=== PATIENT | male | born 1975 | race Caucasian/White ===

== ENCOUNTER 2019-01-01 16:46 | Emergency (ER) | payer MEDICARE, MEDICAID ==
[~2019-01-01 16:46] MED LIST: ADV50250 IH; ALBU18HF2 INH; CALC500T PO; CLIN-96 PO; DEXT30SU5 PO; DIPH1TAB PO; DIVA125T31 PO; IBUP-1984 PO; IBUP-1986 PO; LORA-512 PO; LORA0.5T PO; METF500T PO; ONDA4TAB59 PO; ONDA8TAB9 PO; PRED1TAB PO; PSEU120T84 PO; ZOC40T PO; ZOF4T PO
--- NOTE | 2019-01-01 16:55 | NUR ---
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 PT WAITED SEVERAL MINUTES, THEN GOT ON FLOOR AT REGISTRATION DESK, LEG TWITCHING PER SLUDGE CONTROL ATTENDANT. PT AWOKE AND VERBALIZED WITH STERNAL RUB, STATED HE JUST ISN'T FEELING WELL. PT SMELLED OF ETOH, DENIED DRINKING ETOH. REASSURED PT THAT HE WAS NEXT FOR TRIAGE, TRIAGE NURSE HAD A PATIENT IN THE ROOM ALREADY
== END 2019-01-01 17:59 | disposition left against medical advice (07) ==
LOC: ER 16:46
DX: R25.3 Fasciculation (principal); Z53.21 Procedure and treatment not carried out due to patient leaving prior to being seen by health care provider

== ENCOUNTER 2019-10-22 18:33 | Emergency (ER) | payer MEDICARE, MEDICAID ==
[~2019-10-22] VITALS: Ht 172.7 cm; Wt 90.4 kg
[~2019-10-22 18:33] MED LIST changes: -CLIN-96 PO; +CLIN-97 PO
[2019-10-22] MEDS ORDERED: aspirin 81mg tab.chew PO ONE (19:00)
--- NOTE | 2019-10-22 19:20 | NUR ---
pt decline iv start dr [place] notified and aware
[2019-10-22 19:34] LABS: BASOPHILS % (AUTO) 0.2 % (0-1); EOSINOPHILS # (AUTO) 0.2 X10'3 (0-0.9); EOSINOPHILS % (AUTO) 2.6 % (0-6); HEMATOCRIT 42.2 % (42.0-52.0); HEMOGLOBIN 13.9 g/dl (14.0-17.9); LYMPHOCYTES # (AUTO) 1.7 X10'3 (1.1-4.8); LYMPHOCYTES % (AUTO) 27.8 % (21-51); MEAN CORPUSCULAR VOLUME 97.1 FL (78-98); MEAN PLATELET VOLUME 9.5 FL (7.4-10.4); MONOCYTES # (AUTO) 0.5 X10'3 (0-0.9); MONOCYTES % (AUTO) 7.6 % (2-12); NEUTROPHILS # (AUTO) 3.8 X10'3 (1.8-7.7); NEUTROPHILS % (AUTO) 61.8 % (42-75); PLATELET COUNT 188 X10'3 (140-440); RED BLOOD COUNT 4.35 X10'6 (4.70-6.10); RED CELL DISTRIBUTION WIDTH 13.7 % (11.5-14.5); WHITE BLOOD COUNT 6.2 X10'3 (4.5-11.0)
[2019-10-22 19:44] LABS: PARTIAL THROMBOPLASTIN TIME 24 SECONDS (22-32)
[2019-10-22 19:46] LABS: D-DIMER < 0.19 MG/L FEU (0-0.50)
[2019-10-22 19:53] LABS: ALANINE AMINOTRANSFERASE 38 U/L (12-78); ALBUMIN/GLOBULIN RATIO 1.3 (1.1-1.5); ALKALINE PHOSPHATASE 59 IU/L (46-116); ANION GAP 9 (8-16); ASPARTATE AMINO TRANSFERASE 26 U/L (10-37); BILIRUBIN,TOTAL 0.3 MG/DL (0.1-1.0); BLOOD UREA NITROGEN 18 MG/DL (7-18); CALCIUM 8.6 MG/DL (8.5-10.1); CHLORIDE 107 MMOL/L (99-107); GLUCOSE 125 MG/DL (70-104); MAGNESIUM 2.2 MG/DL (1.5-2.4); POTASSIUM 3.9 MMOL/L (3.5-5.1); SODIUM 141 MMOL/L (135-145); TOTAL CARBON DIOXIDE 25.3 MMOL/L (24-32); TOTAL PROTEIN 7.1 G/DL (6.4-8.2); eGFR 66 ML/MIN
[2019-10-22 20:51] VITALS: BP 140/82
[2019-10-23] MEDS ORDERED: PERM60CR19 TOP (21:49)
== END 2019-10-22 20:54 | disposition left against medical advice (07) ==
LOC: ER 18:34
DX: I20.0 Unstable angina (principal); E78.00 Pure hypercholesterolemia, unspecified; J45.909 Unspecified asthma, uncomplicated; K21.9 Gastro-esophageal reflux disease without esophagitis; E11.9 Type 2 diabetes mellitus without complications; G89.29 Other chronic pain; F41.9 Anxiety disorder, unspecified; Z98.890 Other specified postprocedural states; Z86.69 Personal history of other diseases of the nervous system and sense organs; Z88.0 Allergy status to penicillin; Z88.8 Allergy status to other drugs, medicaments and biological substances; Z79.899 Other long term (current) drug therapy; Z79.84 Long term (current) use of oral hypoglycemic drugs
CPT/HCPCS: 36415; 71045; 80053; 83735; 84484; 85025; 85379; 85610; 85730; 93005; 99285

== ENCOUNTER 2019-10-23 20:43 | Emergency (ER) | payer MEDICARE, MEDICAID ==
[~2019-10-23] VITALS: Ht 177.8 cm; Wt 75.0 kg
[2019-10-23 21:39] VITALS: BP 115/72
[2019-10-23] MEDS ORDERED: diphenhydrAMINE 2%/zinc acetate cream TP STA (21:41)
[2019-10-23] MEDS ORDERED: PERM60CR19 TOP (21:49)
== END 2019-10-23 22:10 | disposition home or self-care (01) ==
LOC: ER 20:44
DX: R21 Rash and other nonspecific skin eruption (principal); E78.00 Pure hypercholesterolemia, unspecified; J45.909 Unspecified asthma, uncomplicated; K21.9 Gastro-esophageal reflux disease without esophagitis; E11.9 Type 2 diabetes mellitus without complications; G89.29 Other chronic pain; F41.9 Anxiety disorder, unspecified; Z98.890 Other specified postprocedural states; Z88.0 Allergy status to penicillin; Z88.8 Allergy status to other drugs, medicaments and biological substances; Z79.899 Other long term (current) drug therapy
CPT/HCPCS: 99282

== ENCOUNTER 2019-11-14 20:08 | Emergency (ER) | payer MEDICARE, MEDICAID ==
[~2019-11-14] VITALS: Ht 177.8 cm; Wt 90.4 kg
[~2019-11-14 20:08] MED LIST changes: +PERM60CR19 TOP
[2019-11-14 20:38] LABS: BASOPHILS % (AUTO) 0.5 % (0-1); EOSINOPHILS % (AUTO) 0.6 % (0-6); HEMATOCRIT 44.8 % (42.0-52.0); HEMOGLOBIN 14.8 g/dl (14.0-17.9); LYMPHOCYTES # (AUTO) 1.8 X10'3 (1.1-4.8); LYMPHOCYTES % (AUTO) 27.6 % (21-51); MEAN CORPUSCULAR HEMOGLOBIN 31.6 PG (27.0-31.0); MEAN CORPUSCULAR VOLUME 95.8 FL (78-98); MEAN PLATELET VOLUME 9.2 FL (7.4-10.4); MONOCYTES # (AUTO) 0.4 X10'3 (0-0.9); MONOCYTES % (AUTO) 5.5 % (2-12); NEUTROPHILS # (AUTO) 4.2 X10'3 (1.8-7.7); NEUTROPHILS % (AUTO) 65.8 % (42-75); PLATELET COUNT 228 X10'3 (140-440); RED BLOOD COUNT 4.68 X10'6 (4.70-6.10); RED CELL DISTRIBUTION WIDTH 13.8 % (11.5-14.5); WHITE BLOOD COUNT 6.5 X10'3 (4.5-11.0)
[2019-11-14 20:50] LABS: ALANINE AMINOTRANSFERASE 42 U/L (12-78); ALBUMIN 4.4 G/DL (3.4-5.0); ALBUMIN/GLOBULIN RATIO 1.2 (1.1-1.5); ALKALINE PHOSPHATASE 113 IU/L (46-116); ANION GAP 8 (8-16); ASPARTATE AMINO TRANSFERASE 24 U/L (10-37); BILIRUBIN,TOTAL 0.4 MG/DL (0.1-1.0); BLOOD UREA NITROGEN 20 MG/DL (7-18); BUN/CREATININE RATIO 16.5 (5.4-32.0); CALCIUM 8.8 MG/DL (8.5-10.1); CHLORIDE 108 MMOL/L (99-107); CREATININE 1.21 MG/DL (0.60-1.10); GLUCOSE 125 MG/DL (70-104); LIPASE 257 U/L (73-393); POTASSIUM 4.2 MMOL/L (3.5-5.1); SODIUM 143 MMOL/L (135-145); TOTAL CARBON DIOXIDE 26.7 MMOL/L (24-32); eGFR 65 ML/MIN
[2019-11-14 22:42] VITALS: BP 142/72
[2019-11-14 22:44] LABS: CLARITY,URINE CLEAR (Clear); COLOR,URINE YELLOW (Yellow); GLUCOSE, URINE NEGATIVE (Neg); KETONES,URINE NEGATIVE (Neg); LEUKOCYTE ESTERASE ,URINE NEGATIVE (Neg); NITRITES, URINE NEGATIVE (Neg); OCCULT BLOOD,URINE NEGATIVE (Neg); PH,URINE 6.5 (4.8-8.0); PROTEIN,URINE NEGATIVE (Neg)
[2019-11-14 22:48] LABS: UA COLLECTION TYPE CLN CATCH MIDSTREAM
== END 2019-11-14 22:43 | disposition home or self-care (01) ==
LOC: ER 20:09
DX: S30.1XXA Contusion of abdominal wall, initial encounter (principal); E78.00 Pure hypercholesterolemia, unspecified; J45.909 Unspecified asthma, uncomplicated; K21.9 Gastro-esophageal reflux disease without esophagitis; G89.29 Other chronic pain; F41.9 Anxiety disorder, unspecified; Z86.69 Personal history of other diseases of the nervous system and sense organs; Z98.890 Other specified postprocedural states; Z88.0 Allergy status to penicillin; Z88.8 Allergy status to other drugs, medicaments and biological substances; Z79.899 Other long term (current) drug therapy; Z79.2 Long term (current) use of antibiotics; V89.2XXA Person injured in unspecified motor-vehicle accident, traffic, initial encounter; Y93.89 Activity, other specified; Y92.89 Other specified places as the place of occurrence of the external cause; Y99.8 Other external cause status
CPT/HCPCS: 36415; 76700; 80053; 81003; 83690; 85025; 99284

== ENCOUNTER 2019-11-15 05:01 | Emergency (ER) | payer MEDICARE, MEDICAID ==
[~2019-11-15] VITALS: Ht 177.8 cm; Wt 90.9 kg
[2019-11-15 05:04] VITALS: BP 123/84
== END 2019-11-15 05:40 | disposition home or self-care (01) ==
LOC: ER 05:02
DX: Z76.5 Malingerer [conscious simulation] (principal); L29.9 Pruritus, unspecified; E78.00 Pure hypercholesterolemia, unspecified; J45.909 Unspecified asthma, uncomplicated; K21.9 Gastro-esophageal reflux disease without esophagitis; E11.9 Type 2 diabetes mellitus without complications; G89.29 Other chronic pain; F41.9 Anxiety disorder, unspecified; Z86.69 Personal history of other diseases of the nervous system and sense organs; Z98.890 Other specified postprocedural states; Z59.0 Homelessness; Z88.0 Allergy status to penicillin; Z88.8 Allergy status to other drugs, medicaments and biological substances; Z79.2 Long term (current) use of antibiotics; Z79.899 Other long term (current) drug therapy
CPT/HCPCS: 99281

== ENCOUNTER 2021-02-04 16:16 | Emergency (ER) | payer MEDICARE, MEDICAID ==
[~2021-02-04] VITALS: Ht 180.3 cm; Wt 106.2 kg
[~2021-02-04 16:16] MED LIST changes: -PERM60CR19 TOP
[2021-02-04 16:23] VITALS: BP 130/88
--- NOTE | 2021-02-04 17:42 | NUR ---
PT WOULD NOT HOLD STILL DURING COVID SWABBING
== END 2021-02-04 18:30 | disposition home or self-care (01) ==
LOC: ER 16:18
DX: U07.1 COVID-19 (principal); R06.02 Shortness of breath; J45.909 Unspecified asthma, uncomplicated; G40.909 Epilepsy, unspecified, not intractable, without status epilepticus; E78.00 Pure hypercholesterolemia, unspecified; K21.9 Gastro-esophageal reflux disease without esophagitis; E11.9 Type 2 diabetes mellitus without complications; G89.29 Other chronic pain; Z59.0 Homelessness; Z98.890 Other specified postprocedural states; Z88.0 Allergy status to penicillin; Z88.8 Allergy status to other drugs, medicaments and biological substances; Z79.899 Other long term (current) drug therapy
CPT/HCPCS: 36415; 71045; 99284; U0003; U0005

== ENCOUNTER 2024-09-22 08:22 | Emergency (ER) | payer MEDICARE, MEDICAID ==
[~2024-09-22] VITALS: Ht 180.3 cm; Wt 103.4 kg
[2024-09-22] MEDS ORDERED: SULF1TAB49 PO (09:14)
[2024-09-22] MEDS ORDERED: IBUP-1984 PO (09:14)
[2024-09-22] MEDS: sulfamethoxazole/trimethoprim DS (800/160mg) tablet PO ONE (09:42)
[2024-09-22 09:45] VITALS: BP 124/82; PULSE 94; RESP 16; TEMP 97; O2SAT 99
--- NOTE | 2024-09-22 09:46 | Physician Documentation ---
HPI ~ General Chief Complaint: Tooth Problem Stated Complaint: TOOTH PAIN Time Seen by MD: 08:35 OK to notify your PCP?: Yes Primary Medical Doctor: [facility] Mode of Arrival: POV History of Present Illness HPI Comment 49-year-old male patient came to the emergency room because of right-sided tooth pain. No other complaints. He stated that he is allergic to penicillin and cephalosporin but he does not know what kind of allergic reaction. No other complaints. Medication Reconciliation Allergies: Coded Allergies: Penicillins (Verified Allergy, Intermediate, 09/22/24) Carbapenems (Verified Allergy, Unknown, 11/15/19) Cephalosporins (Verified Allergy, Unknown, 11/15/19) aztreonam (Verified Allergy, Unknown, 11/15/19) penicillin G (Verified Allergy, Unknown, 11/15/19) Scheduled Albuterol Sulfate (Ventolin Hfa), 2 PUFFS INH Q4HPRN Calcium Gluconate (Calcium Gluconate), 1 TAB PO QID Clindamycin HCL* (Clindamycin HCL*), 1 CAP PO Q6H Dextromethorphan Polistirex (Delsym), 30 MG PO BID Divalproex Sodium DR* (Depakote DR*), 500 MG PO BID, (Reported) Fluticasone/Salmeterol* (Advair 250-50 Diskus*), 1 INH IH BID, (Reported) Ibuprofen (Ibuprofen), 1 TAB PO Q8H Loratadine* (Alavert*), 1 TAB PO DAILY, (Reported) Metformin Hcl* (Glucophage*), 1 TABLET PO BID, (Reported) Ondansetron Hcl (Ondansetron Hcl), 4 MG PO Q8H PRN N/V Ondansetron ODT* (Zofran ODT*), 4 MG PO Q6H Prednisone* (Prednisone*), 2 TAB PO DAILY Pseudoephedrine Hcl (Pseudoephedrine), 1 TABLET PO BID Simvastatin* (Zocor*), 1 TAB PO QPM, (Reported) Sulfamethoxazole/Trimethoprim (Bactrim Ds Tablet), 1 TAB PO Q12H Scheduled PRN Diphenoxylate HCl/Atropine (Lomotil 2.5-0.025 mg Tablet), 1 TAB PO Q6H PRN for diarrhea Ibuprofen* (Motrin*), 800 MG PO Q8H PRN for pain, (Reported) Ibuprofen* (Motrin*), 800 MG PO Q8H PRN for moderate or severe pain 4-10 Lorazepam* (Ativan*), 0.5-1 MG PO Q8H PRN for anxiety, (Reported) Ondansetron (Zofran Odt), 8 MG PO TID PRN PRN for nausea/vomiting Past Medical History Past Medical History: Headache, Seizures, High Cholesterol, Asthma, GERD, Diabetes, Chronic Pain, *PSYCH*, Anxiety Past Surgical History: orthopedic surgeries Other Past Family History: Adopted Alcohol Use: None Drug Use: none Lives with: Other Lives In: Homeless Occupation: employed Review of Systems ROS As stated above in the HPI, otherwise all systems are reviewed and negative. Physical Exam Vital Signs: Temperature: 97.0, Source: Temporal, Heart Rate: 92, Respiratory Rate: 16, BP: 152/90, Pulse Oximetry: 98, Weight: 103.400 Physical Exam Reviewed vital signs and they are well within normal range. Const: Not in acute cardiopulmonary distress Head: Atraumatic Eyes: Normal Conjunctiva ENT: Normal External Ears, Nose and Mouth. Moist mucous membranes. Patient does have tender teeth in the right side of the mouth both up and down. No localized gum swelling. Neck: Full range of motion. No meningismus Resp: Clear to auscultation bilaterally. Normal work of breathing Cardio: Regular rate and rhythm, no murmurs. Skin well perfused Abd: Soft, non-tender, non-distended. Normal bowel sounds. No rebound or guarding Skin: No petechiae or rashes. Warm and dry Back: No midline or flank tenderness Ext: No cyanosis, or edema Neuro: Awake and alert Psych: Normal Mood and Affect Progress Results/Orders Results/Orders Completed Orders - STEVEN PICKENS MD Sulfamethox/Trimetho. Ds Tab (Janra Ds (09/22/24 09:15) Vital Signs 09/22/24 09/22/24 08:25 09:45 Temp 97.0 97.0 Pulse 92 94 Resp 16 16 B/P (MAP) 152/90 124/82 Pulse Ox 98 99 Medical Decision Making Findings During the physical examination, the findings suggestive of acute life- threatening condition such as JVD, tracheal deviation, acidotic breathing, noisy stridorous breath sounds, pulses paradoxus, muffled heart sounds, unequal breath sounds, abdominal rigidity and rebound tenderness, focal neurological deficits, cool clammy skin, severe hypotension, severe tachycardia or bradycardia are absent. Patient does not have any acute emergent medical condition that require immediate resuscitation or care. At this point of time I do not want to challenge the history of penicillin allergy which is unfounded. I will put him on Bactrim and asking to see a dentist [facility]. DISCLAIMER Inadvertent spelling and grammatical errors,inadvertent nascar driver errors,syntax errors, grammatical errors, and spelling errors are likely due to EMR/dictation software use and do not reflect on the overall quality of patient care. Note that the electronic time recorded on this note does not necessarily reflect the actual time of the patient encounter. Departure Disposition: 01 HOME / SELF CARE / HOMELESS Impression: Primary Impression: Dental infection Condition: Stable Additional Instructions: Thank you so much for visiting [facility] Emergency room. Please ask your nurse or provider if you have questions about your care today and do not leave until all your questions have been answered. Please use any medications given as directed and see a dentist in the next 1- 3 days. You may also use motrin and tylenol as needed for pain unless instructed otherwise by your provider or nurse. Indications for more urgent follow-up have been discussed, but you may return to the Emergency Department at ANY time for any worrisome or worsening symptoms. Prescriptions Ibuprofen* (Motrin*) 400 Mg Tablet 800 MG PO Q8H PRN for moderate or severe pain 4-10, #30 TAB With food Prov: STEVEN PICKENS MD 09/22/24 Sulfamethoxazole/Trimethoprim (Bactrim Ds Tablet) 800 Mg-160 Mg Tablet 1 TAB PO Q12H for 10 Days, #20 TAB Prov: STEVEN PICKENS MD 09/22/24 Signature Scribe Signature: x Attestation: STEVEN Mcdonald MD September 22, 2024 09:46
== END 2024-09-22 09:47 | disposition home or self-care (01) ==
LOC: ER 08:23
DX: K04.7 Periapical abscess without sinus (principal); J45.909 Unspecified asthma, uncomplicated; E78.00 Pure hypercholesterolemia, unspecified; E11.9 Type 2 diabetes mellitus without complications; K21.9 Gastro-esophageal reflux disease without esophagitis; G89.29 Other chronic pain; F41.9 Anxiety disorder, unspecified; Z88.0 Allergy status to penicillin; Z88.1 Allergy status to other antibiotic agents; Z88.8 Allergy status to other drugs, medicaments and biological substances; Z79.899 Other long term (current) drug therapy; Z59.00 Homelessness unspecified; Z98.890 Other specified postprocedural states
CPT/HCPCS: 99283